=== PATIENT | female | born 1975 | race Caucasian/White ===

== ENCOUNTER → 2016-10-12 | Outpatient (CLI) | payer OTHER ==
[~2016-10-12] MED LIST: CARAFATE1 G PO; LORTAB 5/500 TA1 TA1 PO; PHENERGAN PO; PHENERGAN25 MG PO; PRILOSEC PO; ULTRAM PO
--- NOTE | ~2016-10-12 | CR286 ---
[facility] A Service of [facility] & [facility] RADIOLOGY TEXT RESULTS PATIENT: KENROY HANSEN LOCATION: [facility] : 71 UNIT #: [id number] AGE: [address]: CITLALY ELIZALDE MD SEX: F ORDER DR: [id number] [facility] [address] [place], [place] [address] [id number] O MR#: [id number] Acc #: [id number] NAME: KENROY HANSEN : 1975 SEX: F STUDY DATE/TIME: 10/12/2016 UNIT: [facility] ROOM: STUDY DESCRIPTION: CR Wrist W Navicular Min 3 Rt Attending Physician: Citlaly Elizalde Aprn Ordering Physician: Nu Georges A.P.R.N. Primary Care Physician: Nu Georges A.P.R.N. MEDICAL IMAGING REPORT This report is preliminary unless electronic signature is present EXAM Right wrist , 10/12/2016 at 1124 hours. HISTORY Wrist pain and decreased range of motion. History of injury from fall 3 years ago. FINDINGS 4 views of the right wrist are compared with 08/15/2013. 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 There is an old healed fracture of the distal radius. No acute fracture or malalignment is seen. The scaphoid is normal. Remaining carpal bones are normal, as well. IMPRESSION Old, distal radius and ulna fractures. Otherwise, negative right wrist. Dictated by... Gilberto Real Jr., M.D. THIS IS AN ELECTRONICALLY VERIFIED REPORT Gilberto Real Jr., M.D. at 10/17/2016 12:37 PM IRMA/linda TD: 10/13/2016 11:43 JOB #: [id number] MEDICAL IMAGING REPORT COPY
--- NOTE | ~2016-10-12 | CR142 ---
[facility] A Service of [facility] & [facility] RADIOLOGY TEXT RESULTS PATIENT: KENROY HANSEN LOCATION: [facility] : 71 UNIT #: [id number] AGE: [address]: CITLALY ELIZALDE MD SEX: F ORDER DR: [id number] [facility] [address] [place] [address]. [place], [place] [address] [id number] O MR#: [id number] Acc #: [id number] NAME: KENROY HANSEN : 1975 SEX: F STUDY DATE/TIME: 10/12/2016 UNIT: [facility] ROOM: STUDY DESCRIPTION: CR Hand Min 3 Views Rt Attending Physician: Citlaly Elizalde Aprn Ordering Physician: Nu Georges A.P.R.N. Primary Care Physician: Nu Georges A.P.R.N. MEDICAL IMAGING REPORT This report is preliminary unless electronic signature is present EXAM Right hand, 10/12/2016 at 11:27. HISTORY Hand pain and decreased range of motion for the last 3 years. History of fall. FINDINGS Old distal radius and ulna fractures are seen. No fracture or malalignment is seen within the hand. There is no osteophyte formation seen to suggest osteoarthritis. The soft tissues are normal. However, there is sclerosis in the distal phalanges of the third, fourth, and fifth digits and probably to some degree, in the second digit. This is a nonspecific finding, but can be seen in the setting of rheumatoid arthritis. Correlate clinically. IMPRESSION No acute findings in the hand. There is sclerosis in the distal phalanges, as above. This is a nonspecific finding, but can be seen in the setting of rheumatoid arthritis. Dictated by... Gilberto Real Jr., M.D. THIS IS AN ELECTRONICALLY VERIFIED REPORT Gilberto Real Jr., M.D. at 10/13/2016 12:37 PM IRMA/linda TD: 10/13/2016 12:32 JOB #: [id number] [facility] A Service of [facility] & [facility] RADIOLOGY TEXT RESULTS PATIENT: KENROY HANSEN LOCATION: [facility] #: [id number] : 71 UNIT #: [id number] AGE: [address]: CITLALY ELIZALDE MD SEX: F ORDER DR: MEDICAL IMAGING REPORT COPY
== END | disposition home or self-care (01) ==
LOC: CRAD 11:16
DX: M25.531 Pain in right wrist (principal); M89.8X4 Other specified disorders of bone, hand
CPT/HCPCS: 73110; 73130

== ENCOUNTER → 2016-11-04 | Day surgery (SDC) | payer OTHER ==
--- NOTE | ~2016-11-04 | OR ---
Unit #: [id number] #: [id number] Patient: KENROY HANSEN [id number] [address] [address] [id number] O MR#: [id number] NAME: KENROY HANSEN ROOM: Date of Procedure: 11/04/2016 Admission Date: 11/04/2016 Surgeon: Nick Smith Jr., M.D. : 1975 Attending Physician: Nick Smith Jr., M.D. Primary Care Physician: Nu Georges A.P.R.N. OPERATIVE REPORT INDICATIONS FOR PROCEDURE The patient is a 41-year-old [place] female, who recently presented to the office complaining of cystic mass of the frontal scalp. This has been causing a lot of discomfort especially when she bucio her hair and she desires removal of it. She was brought in this time at her request for removal of this mass. 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 ANESTHESIA 1% Xylocaine with epinephrine locally. PROCEDURE PERFORMED Excision of cyst of the scalp. DESCRIPTION OF PROCEDURE The patient was positioned in the supine position. After being prepped and draped in routine fashion, she was anesthetized locally in the area of the palpable cyst with 1% Xylocaine with epinephrine. An elliptical incision was made around the cyst being totally excised from the surrounding tissue. After it was removed, it was sent to pathology. Hemostasis was achieved with Bovie cautery, and the skin edges were approximated with interrupted 2-0 nylon sutures. Ointment was applied externally. Estimated blood loss was minimal. No drains were used. No complications. The patient discharged in satisfactory condition. Dictated by... Nick Smith Jr., M.D. JMB/stefania TD: 11/05/2016 03:41 JOB #: [id number] Unit #: [id number] #: [id number] Patient: KENROY HANSEN OPERATIVE REPORT Page 1 of 1 X Nick Smith MD PROCEDURE OPERATIVE NOTE
== END | disposition home or self-care (01) ==
LOC: CSUR 08:13
DX: L72.12 Trichodermal cyst (principal); L72.11 Pilar cyst; M19.90 Unspecified osteoarthritis, unspecified site; K21.9 Gastro-esophageal reflux disease without esophagitis; F41.9 Anxiety disorder, unspecified; F32.9 Major depressive disorder, single episode, unspecified; Z88.8 Allergy status to other drugs, medicaments and biological substances; Z79.899 Other long term (current) drug therapy
CPT/HCPCS: 88304

== ENCOUNTER → 2016-11-30 | Outpatient (CLI) | payer OTHER ==
--- NOTE | ~2016-11-30 | CR230 ---
[facility] A Service of [facility] & [facility] RADIOLOGY TEXT RESULTS PATIENT: KENROY HANSEN LOCATION: [facility] : 71 UNIT #: [id number] AGE: [address]: CITLALY ELIZALDE MD SEX: F ORDER DR: [id number] [facility] [address]. [place], [place] [address] [id number] O MR#: [id number] Acc #: [id number] NAME: KENROY HANSEN : 1975 SEX: F STUDY DATE/TIME: 11/30/2016 13:29 UNIT: [facility] ROOM: STUDY DESCRIPTION: CR Shoulder Min 2 View Rt Attending Physician: Citlaly Elizalde Aprn Referring Physician: Citlaly Elizalde Aprn Ordering Physician: Physician Non-Staff Primary Care Physician: Citlaly Elizalde Aprn MEDICAL IMAGING REPORT This report is preliminary unless electronic signature is present EXAM Right shoulder, 11/30/2016 HISTORY 41-year-old female with chronic right shoulder pain. She states this began after a fall on the ice. TECHNIQUE Three-view right shoulder series. FINDINGS The examination is negative. No acute or chronic fracture deformity or additional osseous lesion is demonstrated. IMPRESSION Negative right shoulder. Dictated by... Roe Frazier M.D. THIS IS AN ELECTRONICALLY VERIFIED REPORT Roe Frazier M.D. at 12/01/2016 4:05 AM SAULO/tawanna TD: 12/01/2016 01:23 JOB #: [id number] MEDICAL IMAGING REPORT Page 1 of 1 COPY
== END | disposition home or self-care (01) ==
LOC: CRAD 13:19
DX: M25.511 Pain in right shoulder (principal)
CPT/HCPCS: 73030

== ENCOUNTER → 2016-12-23 | Outpatient (CLI) | payer OTHER ==
--- NOTE | ~2016-12-23 | MR165 ---
[facility] A Service of [facility] RADIOLOGY TEXT RESULTS PATIENT: KENROY HANSEN LOCATION: [facility] : 71 UNIT #: [id number] AGE: [address]: Alisha Azar APRN SEX: F ORDER DR: [id number] [place] [id number] [facility]. [place], [place] [address] [id number] O MR#: [id number] Acc #: [id number] NAME: KENROY HANSEN : 1975 SEX: F STUDY DATE/TIME: 12/23/2016 13:02 UNIT: [facility] ROOM: STUDY DESCRIPTION: MR Shoulder Wo Contrast Rt Attending Physician: Alisha Azar A.P.R.N. Referring Physician: Alisha Azar A.P.R.N. Ordering Physician: Alisha Azar A.P.R.N. Primary Care Physician: Alden Madison Aprn MRI CENTER REPORT This report is preliminary unless electronic signature is present. EXAM MRI of the right shoulder. HISTORY 41-year-old female fell on ice 4 years ago, caught herself with hands, broke wrist, now complains of shoulder pain. COMPARISON Right shoulder films, 11/30/2016. FINDINGS Multiplanar, multiecho imaging was performed of the right shoulder utilizing a high field magnet and dedicated protocol. Bone structure and alignment appears normal. No focal marrow edema. Joint fluid within normal limits. The rotator cuff appears intact without tendinopathy or tear. No muscle atrophy or edema. Superior labrum, biceps anchor, and long tendon of the biceps appears intact. Anterior and posterior labrum are unremarkable. The deltoid and extraarticular soft tissues appear normal. There is mildly prominent fluid along the proximal long tendon of the biceps within the bicipital groove. Correlate clinically for localized tenderness and possible tenosynovitis. IMPRESSION 1. No evidence of rotator cuff tear or tendinopathy. 2. Prominent fluid along the proximal biceps tendon within the bicipital groove. Correlate clinically for focal tenderness and tenosynovitis. [facility] A Service of [facility] RADIOLOGY TEXT RESULTS PATIENT: KENROY HANSEN LOCATION: [facility] : 71 UNIT #: [id number] AGE: [address]: Alisha Azar APRN SEX: F ORDER DR: Dictated by... Karen Fu M.D. THIS IS AN ELECTRONICALLY VERIFIED REPORT Karen Fu M.D. at 12/23/2016 3:32 PM RIKI/marii TD: 12/23/2016 15:07 JOB #: [id number] MRI CENTER REPORT Page 1 of 1 COPY
== END | disposition home or self-care (01) ==
LOC: CMRI 12:43
DX: M25.511 Pain in right shoulder (principal)
CPT/HCPCS: 73221